=== PATIENT | female | born 1970 | race African-American/Black ===

== ENCOUNTER → 2016-04-08 | Outpatient (CLI) | payer OTHER ==
[2016-04-08 14:04] LABS: ABSOLUTE LYMPHOCYTES (AUTO) 2.4 10^3/uL (0.5-4.7); ABSOLUTE MONOCYTES (AUTO) 0.5 10^3/uL (0.1-1.4); ABSOLUTE NEUT (AUTO) 4.5 10^3/uL (1.7-8.2); BASOPHILS % (AUTO) 0.4 % (0-2); EOSINOPHILS % (AUTO) 0.4 % (0-6); HEMATOCRIT 41.9 % (36.0-47.0); HEMOGLOBIN 14.2 g/dL (12.0-15.5); HGB HCT DIFFERENCE 0.7; LYMPHOCYTES % (AUTO) 32.5 % (13-45); MEAN CORPUSCULAR HEMOGLOBIN 31.7 pg (27.0-33.4); MEAN CORPUSCULAR HGB CONC 33.9 g/dL (32.0-36.0); MEAN CORPUSCULAR VOLUME 93 fl (80-97); MONOCYTES % (AUTO) 7.1 % (3-13); RED BLOOD COUNT 4.48 10^6/uL (3.72-5.28); RED CELL DISTRIBUTION WIDTH 15.3 % (11.5-14.0); SEGMENTED NEUTROPHILS % (AUTO) 59.6 % (42-78); WHITE BLOOD COUNT 7.5 10^3/uL (4.0-10.5)
[2016-04-08 14:30] LABS: ALANINE AMINOTRANSFERASE 25 U/L (9-52); ALBUMIN 4.9 g/dL (3.5-5.0); ALKALINE PHOSPHATASE 154 U/L (38-126); ANION GAP 16 (5-19); ASPARTATE AMINO TRANSFERASE 21 U/L (14-36); BILIRUBIN,TOTAL 1.5 mg/dL (0.2-1.3); BLOOD UREA NITROGEN 11 mg/dL (7-20); CALCIUM 9.5 mg/dL (8.4-10.2); CARBON DIOXIDE 23 mmol/L (22-30); CHLORIDE 104 mmol/L (98-107); CHOLESTEROL 182.36 mg/dL (0-200); CREATININE RESULT 0.58 mg/dL (0.52-1.25); Direct HDL 106 mg/dL (>40); GLUCOSE 75 mg/dL (75-110); POTASSIUM 4.3 mmol/L (3.6-5.0); SODIUM 143.2 mmol/L (137-145); TOTAL PROTEIN 8.2 g/dL (6.3-8.2); TRIGLYCERIDES 43 mg/dL (<150)
[2016-04-08 14:40] LABS: DIRECT LDL 63 mg/dL (<100)
[2016-04-08 15:02] LABS: THYROID STIMULATING HORMONE < 0.02 uIU/mL (0.47-4.68)
== END ==
LOC: CCC 12:13
DX: E06.9 Thyroiditis, unspecified (principal)
CPT/HCPCS: 36415; 80053; 80061; 82306; 83036; 84439; 84443; 85025

== ENCOUNTER 2016-05-09 02:49 | Observation (INO) | payer SELFPAY ==
[2016-05-09] MEDS ORDERED: ASPIRIN 81 MG TABLET, CHEWABLE PO ONE (02:52)
[2016-05-09 03:38] LABS: ABSOLUTE MONOCYTES (AUTO) 0.5 10^3/uL (0.1-1.4); ABSOLUTE NEUT (AUTO) 7.1 10^3/uL (1.7-8.2); BASOPHILS % (AUTO) 0.4 % (0-2); HEMATOCRIT 40.2 % (36.0-47.0); HEMOGLOBIN 13.5 g/dL (12.0-15.5); HGB HCT DIFFERENCE 0.3; LYMPHOCYTES % (AUTO) 11.3 % (13-45); MEAN CORPUSCULAR HEMOGLOBIN 32.1 pg (27.0-33.4); MEAN CORPUSCULAR HGB CONC 33.7 g/dL (32.0-36.0); MEAN CORPUSCULAR VOLUME 95 fl (80-97); MONOCYTES % (AUTO) 5.5 % (3-13); RED BLOOD COUNT 4.21 10^6/uL (3.72-5.28); RED CELL DISTRIBUTION WIDTH 13.8 % (11.5-14.0); SEGMENTED NEUTROPHILS % (AUTO) 82.8 % (42-78); WHITE BLOOD COUNT 8.5 10^3/uL (4.0-10.5)
[2016-05-09 04:17] LABS: ALANINE AMINOTRANSFERASE 18 U/L (9-52); ALBUMIN 4.3 g/dL (3.5-5.0); ALKALINE PHOSPHATASE 132 U/L (38-126); ANION GAP 16 (5-19); ASPARTATE AMINO TRANSFERASE 22 U/L (14-36); BILIRUBIN,TOTAL 0.8 mg/dL (0.2-1.3); BLOOD UREA NITROGEN 13 mg/dL (7-20); CALCIUM 9.4 mg/dL (8.4-10.2); CARBON DIOXIDE 22 mmol/L (22-30); CHLORIDE 103 mmol/L (98-107); CREATINE KINASE 123 U/L (30-135); CREATININE RESULT 0.58 mg/dL (0.52-1.25); GLUCOSE 129 mg/dL (75-110); POTASSIUM 3.5 mmol/L (3.6-5.0); SODIUM 140.8 mmol/L (137-145); TOTAL PROTEIN 8.2 g/dL (6.3-8.2)
[2016-05-09 04:35] LABS: CREATINE KINASE MB 0.98 ng/mL (<4.55)
[2016-05-09 04:36] LABS: TROPONIN I < 0.012 ng/mL
--- NOTE | 2016-05-09 07:35 | ER Document Report ---
ED General - General Chief Complaint: Chest Pain Stated Complaint: CHEST/STOMACH PAIN Mode of Arrival: Medic Information source: Patient Notes: 45-year-old female presents with complaints of heart racing sensation that causes sharp chest pain. Patient denies any fevers or chills nausea vomiting or diarrhea. Patient notes these episodes have happened in the past, patient was also concerned that she may be TRAVEL OUTSIDE OF THE [place] IN LAST 30 DAYS: No - HPI Onset: Just prior to arrival Onset/Duration: Sudden Quality of pain: Sharp Severity: Mild Pain Level: 1 Associated symptoms: Other Exacerbated by: Denies Relieved by: Denies Similar symptoms previously: Yes Recently seen / treated by doctor: No - Related Data Allergies/Adverse Reactions: vancomycin [Vancomycin] Allergy (Intermediate, Verified 07/04/15 14:38) Angioneurotic Edema Past Medical History - Social History Smoking Status: Never Smoker Cigarette use (# per day): No Chew tobacco use (# tins/day): No Smoking Education Provided: No Family History: Reviewed & Not Pertinent - Past Medical History Cardiac Medical History: Reports: Hx Hypertension Neurological Medical History: Denies: Hx Seizures Endocrine Medical History: Reports: Hx Hyperthyroidism Past Surgical History: Reports: Hx Section. Denies: Hx Hysterectomy - Immunizations Hx Diphtheria, Pertussis, Tetanus Vaccination: No Review of Systems - Review of Systems Notes: REVIEW OF SYSTEMS: CONSTITUTIONAL : Denies fever, chills, or sweats. Denies recent illness. EENT: Denies eye, ear, throat, or mouth pain or symptoms. Denies nasal or sinus congestion or discharge. Denies throat, tongue, or mouth swelling or difficulty swallowing. CARDIOVASCULAR: admits to chest palpitations sharp chest pain RESPIRATORY: Denies cough, cold, or chest congestion. Denies shortness of breath, difficulty breathing, or wheezing. GASTROINTESTINAL: admits ot abd bloating GENITOURINARY: Denies difficulty urinating, painful urination, burning, frequency, blood in urine, or discharge. FEMALE GENITOURINARY: Denies vaginal bleeding, heavy or abnormal periods, irregular periods. Denies vaginal discharge or odor. MUSCULOSKELETAL: Denies back or neck pain or stiffness. Denies joint pain or swelling. SKIN: Denies rash, lesions or sores. HEMATOLOGIC : Denies easy bruising or bleeding. LYMPHATIC: Denies swollen, enlarged glands. NEUROLOGICAL: Denies confusion or altered mental status. Denies passing out or loss of consciousness. Denies dizziness or lightheadedness. Denies headache. Denies weakness or paralysis or loss of use of either side. Denies problems with gait or speech. Denies sensory loss, numbness, or tingling. Denies seizures. PSYCHIATRIC: Denies anxiety or stress. Denies depression, suicidal ideation, or homicidal ideation. ALL OTHER SYSTEMS REVIEWED AND NEGATIVE. Dictation was performed using [employer] voice recognition software PHYSICAL EXAMINATION: GENERAL: Well-appearing, well-nourished and in no acute distress. HEAD: Atraumatic, normocephalic. EYES: Pupils equal round and reactive to light, extraocular movements intact, conjunctiva are normal. ENT: Nares patent, oropharynx clear without exudates. Moist mucous membranes. NECK: Normal range of motion, supple without lymphadenopathy LUNGS: Breath sounds clear to auscultation bilaterally and equal. No wheezes rales or rhonchi. HEART: Regular rate and rhythm without murmurs ABDOMEN: Soft, nontender, nondistended abdomen. No guarding, no rebound. No masses appreciated. Female : deferred Musculoskeletal: Normal range of motion, no pitting or edema. No cyanosis. NEUROLOGICAL: Cranial nerves grossly intact. Normal speech, normal gait. Normal sensory, motor exams PSYCH: Normal mood, normal affect. SKIN: Warm, Dry, normal turgor, no rashes or lesions noted. Physical Exam - Vital signs Vitals: Pulse Ox 100 05/09/16 02:52 Course - Re-evaluation Re-evalutation: 05/09/16 07:36 pt noted by ems to have 6 beats of vtach, no pulse lost during episode. given these symptoms [facility] admission is appropriate - Vital Signs Vital signs: Temp Pulse Resp BP Pulse Ox 98.6 F 16 107/61 100 05/09/16 03:00 05/09/16 06:00 05/09/16 04:48 05/09/16 06:00 - Laboratory Result Diagrams: 05/09/16 03:30 05/09/16 03:30 Laboratory results interpreted by me: 05/09/16 05/09/16 03:30 03:30 Seg Neutrophils % 82.8 H Lymphocytes % 11.3 L Potassium 3.5 L Glucose 129 H Alkaline Phosphatase 132 H - Diagnostic Test Radiology reviewed: Image reviewed, Reports reviewed - EKG Interpretation by Me EKG shows normal: Sinus rhythm, Hamilton, Intervals, QRS Complexes Discharge - Discharge Clinical Impression: Ventricular tachycardia Chest pain Qualifiers: Chest pain type: unspecified Qualified Code(s): R07.9 - Chest pain, unspecified Condition: Stable Disposition: ADMITTED OBSERVATION Admitting Provider: Hospitalist Unit Admitted: Telemetry
[2016-05-09] MEDS ORDERED: ONDANSETRON HCL INJ/PF 4 MG/2 ML SDV IV PRN (07:45)
[2016-05-09] MEDS ORDERED: ACETAMINOPHEN 325 MG TABLET PO PRN (07:45)
[2016-05-09] MEDS ORDERED: POTASSIUM CHLORIDE 10 MEQ TABLET.SA PO ONE (09:00)
--- NOTE | 2016-05-09 09:24 | EKG REPORT ---
SEVERITY:- ABNORMAL ECG - SINUS RHYTHM RIGHT ATRIAL ABNORMALITY RIGHT AXIS DEVIATION : Confirmed by: Lalo Quintero 09-May-2016 09:23:17
[2016-05-09] MEDS ORDERED: ATENOLOL 50 MG TABLET PO SCH (10:00)
[2016-05-09] MEDS ORDERED: HEPARIN SOD (PORCINE) 5,000 UNIT/ML 1 ML SYRINGE SUBCUT SCH (14:00)
--- NOTE | 2016-05-09 14:35 | PDOC H&P ---
History of Present Illness Admission Date/PCP: 05/09/16 07:45 Patient complains of: Palpitations and chest pain History of Present Illness: TREY NASH is a 45 year old female who presents to [facility] via EMS after she had palpitations followed by a sharp chest discomfort while arguing with her boyfriend. Patient states she has had these episodes in the past. They are usually precipitated by emotional stress, and resolve when the stress is relieved. She was noted by EMS to have a 6 beat run of Vtach, or SVT. She is known to our service from previous admission for thryotoxicosis. She was here in December and transferred to [facility] for further treatment. Unfortunately, she has a history of noncompliance with medications and treatment and states she is presently taking no medications. She denies any symptoms at the present time. She denies any chest pain, palpitations or shortness of breath. She denies any nausea, vomiting or diarrhea. She states that she presently feels fine. She relates symptoms occurring only when her boyfriend is arguing with her or causing her to be upset. Past Medical History Cardiac Medical History: Reports: Hypertension, Other - Palpitations Pulmonary Medical History: Reports: None Neurological Medical History: Denies: Seizures Endocrine Medical History: Reports: Hyperthyroidism Renal/ Medical History: Reports: None Malignancy Medical History: Reports: None GI Medical History: Reports: None Musculoskeltal Medical History: Reports: None Skin Medical History: Reports: None Psychiatric Medical History: Reports: Depression Traumatic Medical History: Reports: None Hematology: Reports: None Infectious Medical History: Reports: None Past Surgical History Past Surgical History: Reports: Section Denies: Hysterectomy Social History Information Source: Patient Smoking Status: Never Smoker Frequency of Alcohol Use: Rare Hx Recreational Drug Use: No Hx Prescription Drug Abuse: No - Advance Directive Resuscitation Status: Full Code Surrogate healthcare decision maker:: Her sister, Ariela is the only family she has. Children are wards of the state Family History Family History: Reviewed & Not Pertinent Parental Family History Reviewed: Yes Children Family History Reviewed: Yes Sibling(s) Family History Reviewed.: Yes Medication/Allergy Home Medications: Meloxicam [Mobic 7.5 mg Tablet] 7.5 mg PO DAILY 05/09/16 Allergies/Adverse Reactions: vancomycin [Vancomycin] Allergy (Intermediate, Verified 07/04/15 14:38) Angioneurotic Edema Review of Systems Constitutional: ABSENT: chills, fever(s), headache(s), weight gain, weight loss Eyes: ABSENT: visual disturbances Ears: ABSENT: hearing changes Cardiovascular: PRESENT: chest pain, palpitations Respiratory: ABSENT: cough, hemoptysis Gastrointestinal: ABSENT: abdominal pain, constipation, diarrhea, hematemesis, hematochezia, nausea, vomiting Genitourinary: ABSENT: dysuria, hematuria Musculoskeletal: ABSENT: joint swelling Integumentary: ABSENT: rash, wounds Neurological: ABSENT: abnormal gait, abnormal speech, confusion, dizziness, focal weakness, syncope Psychiatric: ABSENT: anxiety, depression, homidical ideation, suicidal ideation Endocrine: ABSENT: cold intolerance, heat intolerance, polydipsia, polyuria Hematologic/Lymphatic: ABSENT: easy bleeding, easy bruising Physical Exam Vital Signs: Temp Pulse Resp BP Pulse Ox 98.6 F 16 107/61 100 05/09/16 03:00 05/09/16 06:00 05/09/16 04:48 05/09/16 06:00 General appearance: PRESENT: no acute distress, thin, well-developed Head exam: PRESENT: atraumatic, normocephalic Eye exam: PRESENT: conjunctiva pink, EOMI, PERRLA. ABSENT: scleral icterus Ear exam: PRESENT: normal external ear exam Mouth exam: PRESENT: moist, tongue midline Neck exam: ABSENT: carotid bruit, JVD, lymphadenopathy, thyromegaly Respiratory exam: PRESENT: clear to auscultation latosha. ABSENT: rales, rhonchi, wheezes Cardiovascular exam: PRESENT: RRR. ABSENT: diastolic murmur, rubs, systolic murmur Pulses: PRESENT: normal dorsalis pedis pul Vascular exam: PRESENT: normal capillary refill GI/Abdominal exam: PRESENT: normal bowel sounds, soft. ABSENT: distended, guarding, mass, organolmegaly, rebound, tenderness Rectal exam: PRESENT: deferred Extremities exam: PRESENT: full ROM. ABSENT: calf tenderness, clubbing, pedal edema Neurological exam: PRESENT: alert, awake, oriented to person, oriented to place , oriented to time, oriented to situation, CN II-XII grossly intact. ABSENT: motor sensory deficit Psychiatric exam: PRESENT: appropriate affect, normal mood. ABSENT: homicidal ideation, suicidal ideation Results Laboratory Results: 05/09/16 09:44 Troponin I < 0.012 Impressions: Chest X-Ray 05/09/16 02:52 IMPRESSION: NO ACUTE RADIOGRAPHIC FINDING IN THE CHEST. Assessment & Plan - Diagnosis (1) Heart palpitations Is this a current diagnosis for this admission?: YesPlan: Patient has a history of severe thyrotoxicosis and medical noncompliance. She had a reported 6 beat run of VT or SVT. She has had no arrythmias here. (2) Chest pain Qualifiers: Chest pain type: unspecified Qualified Code(s): R07.9 - Chest pain, unspecified Is this a current diagnosis for this admission?: YesPlan: Will obtain serial troponins, to rule out acute coronary syndrome. ECG unremarkable. (3) Hyperthyroidism Is this a current diagnosis for this admission?: YesPlan: Patient has a history of severe hyperthyroidism. She was hospitalized here and transferred to [facility] in December. She is not compliant with medications or treatment. She has been counseled. Will place on methimazole and monitor overnight. Low dose atenolol to reduce recurrent SVT (4) Noncompliance Is this a current diagnosis for this admission?: YesPlan: Patient is not taking any of her present medications. She has been counseled (5) Moderate protein malnutrition Is this a current diagnosis for this admission?: YesPlan: Patient with a history of anorexia. She has a BMI of 21. She states she is eating and drinking well. Will liberalize diet (6) Anorexia Is this a current diagnosis for this admission?: YesPlan: Regular diet with supplements - Time Time Spent: 50 to 70 Minutes Critical Time spent with patient: 25-34 minutes Medications reviewed and adjusted accordingly: Yes
[2016-05-09] MEDS ORDERED: METHIMAZOLE 5 MG TABLET PO ONE (16:00)
[2016-05-09 16:40] VITALS: BP 118/75
--- NOTE | 2016-05-09 16:51 | PDOC DISCHARGE SUMMARY ---
General - Admit/Disc Date/PCP Admission Date/Primary Care Provider: 05/09/16 07:45 Discharge Date: 05/09/16 - Discharge Diagnosis (1) Heart palpitations Is this a current diagnosis for this admission?: YesSummary: Patient had no arrythmias here. She has a history of thyrotoxicosis and does not take her medications. She was given prescriptions for Tapazol and Atenolol and told to follow with [facility] (2) Chest pain Is this a current diagnosis for this admission?: YesSummary: Troponins negative. Most likely related to anxiety (3) Hyperthyroidism Is this a current diagnosis for this admission?: YesSummary: Methimazole 20 mg tid (4) Noncompliance Is this a current diagnosis for this admission?: YesSummary: She states she is not taking medications because she can't afford it. (5) Moderate protein malnutrition Is this a current diagnosis for this admission?: YesSummary: Counseled on need to increase intake and control hyperthyroidism (6) Anorexia Is this a current diagnosis for this admission?: YesSummary: Kylee was counseled and instructed on need to control hyperthyroidism - Additional Information Resuscitation Status: Full Code Discharge Diet: Regular Discharge Activity: Activity As Tolerated Home Medications: Acetaminophen [Tylenol 325 mg Tablet] 650 mg PO Q4HP PRN tablet 05/09/16 Atenolol [Tenormin 50 mg Tablet] 25 mg PO DAILY #30 tablet 05/09/16 Meloxicam [Mobic 7.5 mg Tablet] 7.5 mg PO DAILY 05/09/16 Methimazole [Tapazole 5 mg Tablet] 20 mg PO Q8 #60 tablet 05/09/16 History of Present Illness Patient complains of: Palpitations History of Present Illness: TREY NASH is a 45 year old female who presents to [facility] via EMS after she had palpitations followed by a sharp chest discomfort while arguing with her boyfriend. Patient states she has had these episodes in the past. They are usually precipitated by emotional stress, and resolve when the stress is relieved. She was noted by EMS to have a 6 beat run of Vtach, or SVT. She is known to our service from previous admission for thryotoxicosis. She was here in December and transferred to [facility] for further treatment. Unfortunately, she has a history of noncompliance with medications and treatment and states she is presently taking no medications. She denies any symptoms at the present time. She denies any chest pain, palpitations or shortness of breath. She denies any nausea, vomiting or diarrhea. She states that she presently feels fine. She relates symptoms occurring only when her boyfriend is arguing with her or causing her to be upset. Hospital Course Hospital Course: Patient was monitored on telemetry and noted to have no arrythmias. Troponins were noted to be all negative. TSH 0.1. Patient with a history of thyrotoxicosis. She does not take medications. She was sent to [facility] during last hospitalization . She did not follow up on any treatment. She was given methimazole 20 mg. This afternoon she is asking to be discharged. She has remained asymptomatic and needs to work in the morning Physical Exam Vital Signs: Temp Pulse Resp BP Pulse Ox 98.1 F 73 16 118/75 100 05/09/16 15:28 05/09/16 15:28 05/09/16 15:28 05/09/16 15:28 05/09/16 15:28 Intake & Output 05/08/16 05/09/16 05/10/16 06:59 06:59 06:59 Weight 50.1 kg General appearance: PRESENT: no acute distress, thin, well-developed Head exam: PRESENT: atraumatic, normocephalic Eye exam: PRESENT: conjunctiva pink, EOMI, PERRLA. ABSENT: scleral icterus Ear exam: PRESENT: normal external ear exam Mouth exam: PRESENT: moist, tongue midline Neck exam: ABSENT: carotid bruit, JVD, lymphadenopathy, thyromegaly Respiratory exam: PRESENT: clear to auscultation latosha. ABSENT: rales, rhonchi, wheezes Cardiovascular exam: PRESENT: RRR. ABSENT: diastolic murmur, rubs, systolic murmur Pulses: PRESENT: normal dorsalis pedis pul Vascular exam: PRESENT: normal capillary refill GI/Abdominal exam: PRESENT: normal bowel sounds, soft. ABSENT: distended, guarding, mass, organolmegaly, rebound, tenderness Rectal exam: PRESENT: deferred Extremities exam: PRESENT: full ROM. ABSENT: calf tenderness, clubbing, pedal edema Neurological exam: PRESENT: alert, awake, oriented to person, oriented to place , oriented to time, oriented to situation, CN II-XII grossly intact. ABSENT: motor sensory deficit Psychiatric exam: PRESENT: appropriate affect, normal mood. ABSENT: homicidal ideation, suicidal ideation Skin exam: PRESENT: dry, intact, warm. ABSENT: cyanosis, rash Results Laboratory Results: 05/09/16 09:44 Troponin I < 0.012 Impressions: Chest X-Ray 05/09/16 02:52 IMPRESSION: NO ACUTE RADIOGRAPHIC FINDING IN THE CHEST. Qualifiers PATEINT BEING DISCHARGED WITH ANY OF THE FOLLOWING DIAGNOSIS?: No Plan Discharge Plan: Discharge home with family Time Spent: Less than 30 Minutes
[2016-05-09] MEDS ORDERED: LANSOPRAZOLE 15 MG TAB.RAP.DR PO SCH (17:00)
[2016-05-09] MEDS ORDERED: METHIMAZOLE 5 MG TABLET PO SCH ×2 (22:00)
[2016-05-09] MEDS ORDERED: ATORVASTATIN CALCIUM 20 MG TABLET PO SCH (22:00)
[2016-05-09] MEDS ORDERED: CITALOPRAM HYDROBROMIDE 20 MG TABLET PO SCH (22:00)
[2016-05-10] MEDS ORDERED: ASPIRIN 81 MG TABLET, ENT COATED PO SCH (10:00)
== END 2016-05-09 18:00 | disposition home or self-care (01) ==
LOC: EEVIPCON 02:49 → ER 02:49 → EH 07:45 → UNDOADMOB 08:18 → EH 08:18 → 4S 15:05
PROVIDERS: ADMIT Internal Medicine; ATTEND Internal Medicine
DX: R07.9 Chest pain, unspecified (principal); R00.2 Palpitations; E05.90 Thyrotoxicosis, unspecified without thyrotoxic crisis or storm; Z91.14 Patient's other noncompliance with medication regimen; E46 Unspecified protein-calorie malnutrition; I10 Essential (primary) hypertension; F32.9 Major depressive disorder, single episode, unspecified; Z68.20 Body mass index [BMI] 20.0-20.9, adult
CPT/HCPCS: 93005; 99285; 36415; 82553; 82550; 83735; 84443; 84703; 85025; 80053; 84484; 71010; 93010; G0378 ×2

== ENCOUNTER → 2016-06-17 | Outpatient (CLI) | payer OTHER ==
[2016-06-17 13:41] LABS: THYROID STIMULATING HORMONE < 0.02 uIU/mL (0.47-4.68)
== END ==
LOC: CCC 11:46
DX: E05.90 Thyrotoxicosis, unspecified without thyrotoxic crisis or storm (principal)
CPT/HCPCS: 36415; 84439; 84443

== ENCOUNTER 2016-07-20 08:03 | Emergency (ER) | payer SELFPAY ==
--- NOTE | 2016-07-20 08:46 | ER Document Report ---
ED General - General Chief Complaint: Abscess Stated Complaint: PAINFUL BUMP ON FACE TRAVEL OUTSIDE OF THE [place] IN LAST 30 DAYS: No - HPI Patient complains to provider of: abscess acne Notes: Patient coming in for evaluation of a large bump possible abscess on the left side of her face. Patient states history of multiple abscesses or boils in the past. Patient denies any fevers chills nausea vomiting diarrhea. - Related Data Allergies/Adverse Reactions: vancomycin [Vancomycin] Allergy (Intermediate, Verified 07/20/16 08:06) Angioneurotic Edema Past Medical History - Social History Smoking Status: Unknown if Ever Smoked Family History: Reviewed & Not Pertinent Patient has suicidal ideation: No Patient has homicidal ideation: No - Past Medical History Cardiac Medical History: Reports: Hx Hypertension Pulmonary Medical History: Denies: Hx Tuberculosis Neurological Medical History: Denies: Hx Seizures Endocrine Medical History: Reports: Hx Hyperthyroidism Renal/ Medical History: Denies: Hx Peritoneal Dialysis Musculoskeltal Medical History: Reports Hx Arthritis Psychiatric Medical History: Denies: Hx Depression Past Surgical History: Reports: Hx Section. Denies: Hx Hysterectomy - Immunizations Hx Diphtheria, Pertussis, Tetanus Vaccination: No Review of Systems - Review of Systems Constitutional: No symptoms reported EENT: Other - Abscess left side of face Cardiovascular: No symptoms reported Respiratory: No symptoms reported Gastrointestinal: No symptoms reported Genitourinary: No symptoms reported Female Genitourinary: No symptoms reported Musculoskeletal: No symptoms reported Skin: No symptoms reported Hematologic/Lymphatic: No symptoms reported Neurological/Psychological: No symptoms reported Physical Exam - Vital signs Vitals: Temp Pulse Resp BP Pulse Ox 98.2 F 68 16 105/66 98 07/20/16 08:07 07/20/16 08:07 07/20/16 08:07 07/20/16 08:07 07/20/16 08:07 Interpretation: Normal - General General appearance: Appears well, Alert - HEENT Head: Normocephalic, Atraumatic Eyes: Normal Pupils: PERRL Notes: Patient does have a large size pimple/abscess on the left side of her face with minimal surrounding cellulitis. There is a alvarez present. Patient also does have a smaller pimple forming a mucinous one on the left side of face. - Respiratory Respiratory status: No respiratory distress Chest status: Nontender Breath sounds: Normal Chest palpation: Normal - Cardiovascular Rhythm: Regular Heart sounds: Normal auscultation Murmur: No - Abdominal Inspection: Normal Distension: No distension Bowel sounds: Normal Tenderness: Nontender Organomegaly: No organomegaly - Back Back: Normal, Nontender - Extremities General upper extremity: Normal inspection, Nontender, Normal color, Normal ROM , Normal temperature General lower extremity: Normal inspection, Nontender, Normal color, Normal ROM , Normal temperature, Normal weight bearing. No: Makenna's sign - Neurological Neuro grossly intact: Yes Cognition: Normal Orientation: AAOx4 Santy Coma Scale Eye Opening: Spontaneous [place] Coma Scale Verbal: Oriented [place] Coma Scale Motor: Obeys Commands Santy Coma Scale Total: 15 Speech: Normal Motor strength normal: LUE, RUE, LLE, RLE Sensory: Normal - Psychological Associated symptoms: Normal affect, Normal mood - Skin Skin Temperature: Warm Skin Moisture: Dry Skin Color: Normal Course - Re-evaluation Re-evalutation: 07/20/16 08:48 07/20/16 14:31 Patient had I and D performed will discharge home with antibiotics - Vital Signs Vital signs: Temp Pulse Resp BP Pulse Ox 97.2 F 56 L 17 108/69 100 07/20/16 09:44 07/20/16 09:44 07/20/16 09:44 07/20/16 09:44 07/20/16 09:44 Procedures - Incision and Drainage Left Face Type: Simple Blade size: 11 Incision Method: Incision made by scalpel Amount/type of drainage: scant amount pus Discharge - Discharge Clinical Impression: Abscess Acne Qualifiers: Acne type: unspecified acne Qualified Code(s): L70.9 - Acne, unspecified Disposition: HOME, SELF-CARE Instructions: Abscess ([facility]), Post Incision and Drainage, Cephalexin ([facility]) Additional Instructions: Take antibiotic as prescribed. Return to ER symptoms worsen. Prescriptions: Cephalexin Monohydrate [Keflex 500 mg Capsule] 500 mg PO QID #28 capsule Forms: Return to Work
[2016-07-20] MEDS ORDERED: CEPHALEXIN 500 MG CAPSULE PO ONE (09:21)
[2016-07-20 09:51] VITALS: BP 108/69
== END 2016-07-20 09:53 | disposition home or self-care (01) ==
LOC: ER 08:03
PROC: 0H91XZZ Drainage of Face Skin, External Approach (ICD-10-PCS; principal; 2016-07-20)
DX: L02.01 Cutaneous abscess of face (principal); L70.9 Acne, unspecified; I10 Essential (primary) hypertension; Z88.3 Allergy status to other anti-infective agents
CPT/HCPCS: 99283

== ENCOUNTER → 2016-09-29 | Outpatient (CLI) | payer OTHER | LOC: CCC 10:22 | DX: E05.90 Thyrotoxicosis, unspecified without thyrotoxic crisis or storm (principal) | CPT/HCPCS: 36415; 84436; 84443 ==

== ENCOUNTER 2016-10-06 00:44 | Emergency (ER) | payer SELFPAY ==
--- NOTE | 2016-10-06 01:05 | ER Document Report ---
ED General - General Stated Complaint: CHEST PAIN Time Seen by Provider: 10/06/16 00:52 Mode of Arrival: Ambulatory Information source: Patient TRAVEL OUTSIDE OF THE [place] IN LAST 30 DAYS: No - HPI Notes: Patient is a 46-year-old black female history of Albert's thyroiditis presents emergency department with report that she felt lightheaded and near syncopal and felt a slight palpitation and slight chest pain that was transient prior to arrival. She does report some shortness of breath but denies any nausea or vomiting. She states now that she is laying down flat she feels much better. The patient has been on methimazole 4 times a day And was cut back to 2 tablets per day 3 days ago related to blood work which showed her free T4 was low and her TSH was elevated at 5. The patient was kept upon her Atenolol 25 mg twice per day. She also has been taking occasional hydrochlorothiazide for what she describes as mild leg swelling. There is been no change in her weight. She denies any fever or chills. - Related Data Allergies/Adverse Reactions: vancomycin [Vancomycin] Allergy (Intermediate, Verified 07/20/16 08:06) Angioneurotic Edema Past Medical History - General Information source: Patient, Friend - Social History Smoking Status: Unknown if Ever Smoked Frequency of alcohol use: None Drug Abuse: None Lives with: Friend Family History: Reviewed & Not Pertinent - Past Medical History Cardiac Medical History: Reports: Hx Hypertension Pulmonary Medical History: Denies: Hx Tuberculosis Neurological Medical History: Denies: Hx Seizures Endocrine Medical History: Reports: Hx Hyperthyroidism Renal/ Medical History: Denies: Hx Peritoneal Dialysis Musculoskeltal Medical History: Reports Hx Arthritis Psychiatric Medical History: Denies: Hx Depression Past Surgical History: Reports: Hx Section. Denies: Hx Hysterectomy - Immunizations Hx Diphtheria, Pertussis, Tetanus Vaccination: No Review of Systems - Review of Systems Notes: REVIEW OF SYSTEMS: CONSTITUTIONAL : Denies fever, chills, or sweats. Denies recent illness. EENT: Denies eye, ear, throat, or mouth pain or symptoms. Denies nasal or sinus congestion or discharge. Denies throat, tongue, or mouth swelling or difficulty swallowing. CARDIOVASCULAR:. Reports mild ankle swelling RESPIRATORY: Denies cough, cold, or chest congestion. Denies wheezing. GASTROINTESTINAL: Denies abdominal pain or distention. Denies nausea, vomiting , or diarrhea. Denies blood in vomitus, stools, or per rectum. Denies black, tarry stools. Denies constipation. GENITOURINARY: Denies difficulty urinating, painful urination, burning, frequency, blood in urine, or discharge. FEMALE GENITOURINARY: Denies vaginal bleeding, heavy or abnormal periods, irregular periods. Denies vaginal discharge or odor. MUSCULOSKELETAL: Denies back or neck pain or stiffness. Denies joint pain or swelling. SKIN: Denies rash, lesions or sores. HEMATOLOGIC : Denies easy bruising or bleeding. LYMPHATIC: Denies swollen, enlarged glands. NEUROLOGICAL: Denies confusion or altered mental status. Denies passing out or loss of consciousness. Denies headache. Denies weakness or paralysis or loss of use of either side. Denies problems with gait or speech. Denies sensory loss, numbness, or tingling. Denies seizures. PSYCHIATRIC: Denies anxiety or stress. Denies depression, suicidal ideation, or homicidal ideation. ALL OTHER SYSTEMS REVIEWED AND NEGATIVE. Dictation was performed using [employer] voice recognition software Physical Exam - Vital signs Vitals: Resp Pulse Ox 11 L 99 10/06/16 00:59 10/06/16 00:59 - Notes Notes: PHYSICAL EXAMINATION: GENERAL: Well-appearing, well-nourished and in no acute distress. Very thin. HEAD: Atraumatic, normocephalic. EYES: Pupils equal round and reactive to light, extraocular movements intact, conjunctiva are normal. ENT: Nares patent, oropharynx clear without exudates. Moist mucous membranes. NECK: Normal range of motion, supple without lymphadenopathy. No carotid bruits. No thyromegaly. LUNGS: Breath sounds clear to auscultation bilaterally and equal. No wheezes rales or rhonchi. HEART: Regular rate and rhythm without murmurs ABDOMEN: Soft, nontender, nondistended abdomen. No guarding, no rebound. No masses appreciated. Female : deferred Musculoskeletal: Normal range of motion. No cyanosis. Trace bilateral pretibial edema. Negative Homans. No palpable cord. NEUROLOGICAL: Cranial nerves grossly intact. Normal speech, normal gait. Normal sensory, motor exams. No cerebellar ataxia. Finger to nose exam is intact. PSYCH: Normal mood, normal affect. SKIN: Warm, Dry, normal turgor, no rashes or lesions noted. Course - Re-evaluation Re-evalutation: 10/06/16 04:12 Patient was rehydrated with IV fluids. Orthostatics showed relatively low blood pressure, and pulse rate remained in the 50s-60s. Free T4 was low at 0.27 and TSH elevated at 10. Based upon these findings, the patient's methimazole will be discontinued, and her atenolol dose will be cut in half. I discussed possibly stopping the atenolol dose, but the patient was nervous about doing that. Patient's mild lower extremity edema is more myxedema related to hypothyroid state. There is no evidence for congestive heart failure pneumonia or cardiac ischemia. Patient's near syncopal event is most likely related to hypotension secondary to hypothyroid state. - Vital Signs Vital signs: Temp Pulse Resp BP Pulse Ox 98.7 F 54 L 13 91/62 L 100 10/06/16 01:04 10/06/16 03:10 10/06/16 01:02 10/06/16 03:10 10/06/16 01:29 - Laboratory Result Diagrams: 10/06/16 01:41 10/06/16 01:41 Laboratory results interpreted by me: 10/06/16 10/06/16 01:41 01:41 NT-Pro-B Natriuret Pep 128 H TSH 10.50 H Free T4 0.27 L Discharge - Discharge Clinical Impression: Near syncope Hypothyroidism Qualifiers: Hypothyroidism type: due to Albert's thyroiditis Qualified Code(s): E03.8 - Other specified hypothyroidism Hypotension Qualifiers: Hypotension type: hypotension due to drug Qualified Code(s): I95.2 - Hypotension due to drugs Chest pain Qualifiers: Chest pain type: unspecified Qualified Code(s): R07.9 - Chest pain, unspecified Condition: Stable Disposition: HOME, SELF-CARE Instructions: Hypothyroidism ([facility]), Chest Pain of Unclear Cause ([facility]), Hypotension ([facility]) Additional Instructions: Drink plenty of fluids. Stop your methimazole. Cut your dose of atenolol in half. Consider stopping the atenolol if you still feel lightheaded or your blood pressure is low. Follow-up with your regular practitioner within 2 weeks. Forms: Return to Work
[2016-10-06] MEDS ORDERED: NORMAL SALINE 500 ML IV ONE (01:31)
[2016-10-06 02:07] LABS: ABSOLUTE EOSINOPHILS # (AUTO) 0.1 10^3/uL (0.0-0.6); ABSOLUTE MONOCYTES (AUTO) 0.6 10^3/uL (0.1-1.4); ABSOLUTE NEUT (AUTO) 4.2 10^3/uL (1.7-8.2); BASOPHILS % (AUTO) 0.6 % (0-2); EOSINOPHILS % (AUTO) 0.8 % (0-6); HEMATOCRIT 38.2 % (36.0-47.0); HEMOGLOBIN 12.5 g/dL (12.0-15.5); HGB HCT DIFFERENCE -0.7; LYMPHOCYTES % (AUTO) 28.7 % (13-45); MEAN CORPUSCULAR HEMOGLOBIN 31.5 pg (27.0-33.4); MEAN CORPUSCULAR HGB CONC 32.7 g/dL (32.0-36.0); MEAN CORPUSCULAR VOLUME 96 fl (80-97); MONOCYTES % (AUTO) 9.1 % (3-13); RED BLOOD COUNT 3.96 10^6/uL (3.72-5.28); SEGMENTED NEUTROPHILS % (AUTO) 60.8 % (42-78); WHITE BLOOD COUNT 6.9 10^3/uL (4.0-10.5)
[2016-10-06 02:25] LABS: ALANINE AMINOTRANSFERASE 17 U/L (9-52); ALBUMIN 4.1 g/dL (3.5-5.0); ALKALINE PHOSPHATASE 90 U/L (38-126); ANION GAP 10 (5-19); ASPARTATE AMINO TRANSFERASE 18 U/L (14-36); BILIRUBIN,DIRECT 0.3 mg/dL (0.0-0.4); BILIRUBIN,TOTAL 1.2 mg/dL (0.2-1.3); BLOOD UREA NITROGEN 15 mg/dL (7-20); CALCIUM 9.5 mg/dL (8.4-10.2); CARBON DIOXIDE 26 mmol/L (22-30); CHLORIDE 105 mmol/L (98-107); CREATININE RESULT 0.67 mg/dL (0.52-1.25); GLUCOSE 102 mg/dL (75-110); MAGNESIUM 1.8 mg/dL (1.6-2.3); POTASSIUM 3.7 mmol/L (3.6-5.0); SODIUM 141.3 mmol/L (137-145); TOTAL PROTEIN 7.1 g/dL (6.3-8.2)
[2016-10-06 02:35] LABS: TROPONIN I 0.019 ng/mL
--- NOTE | 2016-10-06 02:51 | RADIOLOGY REPORT (SQ) ---
EXAM DESCRIPTION: CHEST PA/LAT COMPLETED DATE/TIME: 10/06/2016 2:38 am REASON FOR STUDY: CP COMPARISON: 9.4.16. 2.4.17. EXAM PARAMETERS: NUMBER OF VIEWS: two views TECHNIQUE: Digital Frontal and Lateral radiographic views of the chest acquired. RADIATION DOSE: NA LIMITATIONS: none FINDINGS: LUNGS AND PLEURA: Prominent interstitium. MEDIASTINUM AND HILAR STRUCTURES: No masses or contour abnormalities. HEART AND VASCULAR STRUCTURES: Heart normal size. No evidence for failure. BONES: No acute findings. HARDWARE: None in the chest. OTHER: No other significant finding. IMPRESSION: No acute cardiopulmonary findings. TECHNICAL DOCUMENTATION: JOB ID: [id number] [email or web address]- All Rights Reserved
[2016-10-06 02:53] LABS: THYROID STIMULATING HORMONE 10.5 uIU/mL (0.47-4.68)
[2016-10-06] MEDS ORDERED: NORMAL SALINE 1000 ML 1,000 ML IV ONE (03:13)
[2016-10-06 03:17] VITALS: BP 91/62
--- NOTE | 2016-10-06 10:23 | EKG REPORT ---
SEVERITY:- BORDERLINE ECG - SINUS RHYTHM PROBABLE LEFT ATRIAL ABNORMALITY BORDERLINE T ABNORMALITIES, INFERIOR LEADS : Confirmed by: Helio Benitez MD 06-Oct-2016 10:22:22
== END 2016-10-06 04:19 | disposition home or self-care (01) ==
LOC: ER 00:44
DX: E06.3 Autoimmune thyroiditis (principal); E05.90 Thyrotoxicosis, unspecified without thyrotoxic crisis or storm; I95.2 Hypotension due to drugs; T50.905A Adverse effect of unspecified drugs, medicaments and biological substances, initial encounter; R55 Syncope and collapse; R07.9 Chest pain, unspecified; R00.2 Palpitations; R06.02 Shortness of breath; I10 Essential (primary) hypertension; Z79.899 Other long term (current) drug therapy; Z88.1 Allergy status to other antibiotic agents
CPT/HCPCS: 99285; 96360; 36415; 84439; 83735; 84443; 85025; 80053; 84484; 83880; 71020; 93005; 93010; J7040

== ENCOUNTER → 2016-11-20 | Outpatient (CLI) | payer OTHER ==
[2016-11-20 11:15] LABS: THYROID STIMULATING HORMONE 3.05 uIU/mL (0.47-4.68)
== END ==
LOC: CCC 09:12
DX: E06.9 Thyroiditis, unspecified (principal)
CPT/HCPCS: 36415; 84439; 84443

== ENCOUNTER → 2017-03-02 | Outpatient (CLI) | payer OTHER ==
[2017-03-02 15:09] LABS: ABSOLUTE EOSINOPHILS # (AUTO) 0.1 10^3/uL (0.0-0.6); ABSOLUTE MONOCYTES (AUTO) 0.4 10^3/uL (0.1-1.4); ABSOLUTE NEUT (AUTO) 3.7 10^3/uL (1.7-8.2); BASOPHILS % (AUTO) 0.6 % (0-2); HEMATOCRIT 39.5 % (36.0-47.0); HEMOGLOBIN 13.5 g/dL (12.0-15.5); LYMPHOCYTES % (AUTO) 31.7 % (13-45); MEAN CORPUSCULAR HEMOGLOBIN 32.2 pg (27.0-33.4); MEAN CORPUSCULAR HGB CONC 34.1 g/dL (32.0-36.0); MEAN CORPUSCULAR VOLUME 94 fl (80-97); MONOCYTES % (AUTO) 7.1 % (3-13); RED BLOOD COUNT 4.19 10^6/uL (3.72-5.28); RED CELL DISTRIBUTION WIDTH 13.6 % (11.5-14.0); SEGMENTED NEUTROPHILS % (AUTO) 59.6 % (42-78); WHITE BLOOD COUNT 6.3 10^3/uL (4.0-10.5)
[2017-03-02 15:48] LABS: ALANINE AMINOTRANSFERASE 29 U/L (9-52); ALBUMIN 4.6 g/dL (3.5-5.0); ALKALINE PHOSPHATASE 94 U/L (38-126); ANION GAP 15 (5-19); ASPARTATE AMINO TRANSFERASE 23 U/L (14-36); BILIRUBIN,DIRECT 0.4 mg/dL (0.0-0.4); BILIRUBIN,TOTAL 0.8 mg/dL (0.2-1.3); BLOOD UREA NITROGEN 9 mg/dL (7-20); CALCIUM 9.3 mg/dL (8.4-10.2); CARBON DIOXIDE 25 mmol/L (22-30); CHLORIDE 107 mmol/L (98-107); CREATININE RESULT 0.66 mg/dL (0.52-1.25); GLUCOSE 126 mg/dL (75-110); POTASSIUM 3.8 mmol/L (3.6-5.0); SODIUM 146.5 mmol/L (137-145); TOTAL PROTEIN 7.8 g/dL (6.3-8.2)
[2017-03-02 16:01] LABS: THYROID STIMULATING HORMONE 1.42 uIU/mL (0.47-4.68)
== END ==
LOC: CCC 13:55
DX: E05.90 Thyrotoxicosis, unspecified without thyrotoxic crisis or storm (principal); R63.4 Abnormal weight loss; Z79.899 Other long term (current) drug therapy
CPT/HCPCS: 36415; 80053; 83036; 84439; 84443; 84479; 85025